=== PATIENT | female | born 1955 | race African-American/Black ===

== ENCOUNTER 2017-01-17 18:51 | Emergency (ER) | payer OTHER ==
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
== END 2017-01-17 21:16 | disposition home or self-care (01) ==
LOC: ERS 18:51
DX: S33.9XXA Sprain of unspecified parts of lumbar spine and pelvis, initial encounter (principal); S13.9XXA Sprain of joints and ligaments of unspecified parts of neck, initial encounter; E11.9 Type 2 diabetes mellitus without complications; M25.511 Pain in right shoulder; F17.210 Nicotine dependence, cigarettes, uncomplicated; I11.0 Hypertensive heart disease with heart failure; I50.9 Heart failure, unspecified; Z86.73 Personal history of transient ischemic attack (TIA), and cerebral infarction without residual deficits; Z79.84 Long term (current) use of oral hypoglycemic drugs; Z79.899 Other long term (current) drug therapy; V43.52XA Car driver injured in collision with other type car in traffic accident, initial encounter
CPT/HCPCS: 72040

== ENCOUNTER 2017-02-14 16:17 | Emergency (ER) | payer OTHER ==
--- NOTE | 2017-02-14 16:48 | RAD ---
CHEST TWO VIEW 02/14/17 HISTORY: Rib pain. COMPARISON: None. FINDINGS: Linear opacity in the right lung base likely atelectasis. No focal air space consolidation, pneumoth orax or effusion. No displaced rib fracture. Mild spondylosis thoracic spine. IMPRESSION: Linear atelectasis right lung base. POS: [facility]
== END 2017-02-14 17:51 | disposition home or self-care (01) ==
LOC: ERS 16:17
DX: J98.11 Atelectasis (principal); M94.0 Chondrocostal junction syndrome [Tietze]; I11.0 Hypertensive heart disease with heart failure; I50.9 Heart failure, unspecified; E11.9 Type 2 diabetes mellitus without complications; F41.9 Anxiety disorder, unspecified; Z79.84 Long term (current) use of oral hypoglycemic drugs; Z79.899 Other long term (current) drug therapy; Z86.73 Personal history of transient ischemic attack (TIA), and cerebral infarction without residual deficits
CPT/HCPCS: 71020

== ENCOUNTER 2017-04-21 20:26 | Emergency (ER) | payer OTHER | END 2017-04-21 22:03 | disposition home or self-care (01) | LOC: ERS 20:26 | DX: S16.1XXA Strain of muscle, fascia and tendon at neck level, initial encounter (principal); I11.0 Hypertensive heart disease with heart failure; I50.9 Heart failure, unspecified; E11.9 Type 2 diabetes mellitus without complications; F17.210 Nicotine dependence, cigarettes, uncomplicated | CPT/HCPCS: 99283 ==

== ENCOUNTER 2017-05-21 09:48 | Emergency (ER) | payer MEDICAID, OTHER ==
--- NOTE | 2017-05-21 12:01 | RAD ---
SINGLE VIEW OF THE CHEST: Comparison: 12-25-15 History: Cough, congestion, body aches and chills for four days. FINDINGS: Single view of the chest shows normal sized cardiomediastinal silhouette with atherosclerotic calcifi cation in the aorta. There is no evidence of consolidation, mass, or pleural effusion. Degenerative c hanges are seen in the spine. IMPRESSION: 1. No evidence of acute cardiopulmonary edema. 2. Atherosclerotic disease. POS: [facility]
== END 2017-05-21 11:46 | disposition home or self-care (01) ==
LOC: ERS 09:48
DX: B34.9 Viral infection, unspecified (principal); I11.0 Hypertensive heart disease with heart failure; I50.9 Heart failure, unspecified; Z86.73 Personal history of transient ischemic attack (TIA), and cerebral infarction without residual deficits; E11.9 Type 2 diabetes mellitus without complications; F17.210 Nicotine dependence, cigarettes, uncomplicated; Z79.899 Other long term (current) drug therapy
CPT/HCPCS: 71045

== ENCOUNTER 2017-08-31 20:31 | Observation (INO) | payer OTHER ==
[~2017-08-31 20:31] MED LIST: ISOVUE-370 76%-LOCM 1 ML ONE
--- NOTE | 2017-08-31 21:29 | CT ---
CT BRAIN: Date: 08/31/17 PROVIDED CLINICAL HISTORY: Left-sided facial droop and headache. FINDINGS: Comparison with 10/24/15. The ventricular system is normal in size and morphology. There is no evidence for intracranial hemorr eleuterio or mass effect. Microvascular ischemic changes are again noted, most conspicuously affecting the left salas radiata. The extracranial soft tissues and osseous structures demonstrate an unremarkabl e CT appearance. IMPRESSION: No evidence for intracranial hemorrhage. Findings communicated to Dr. Flores at 2041 hours on 08/31/17. CODE CR. POS: [facility]
[2017-08-31 21:34] LABS: INR-International Normal Ratio 1.1; PTT 28.3 SEC (22.9-36.1); Prothrombin Time 13.9 SEC (12.0-14.7)
[2017-08-31 21:36] LABS: BHCG - Serum Negative (NEGATIVE); Pregs Control Background? CLEAR/WHITE (CLR/WHITE); Pregs Control Bar Appear? YES (CONTROL BAR)
--- NOTE | 2017-08-31 21:36 | RAD ---
PORTABLE CHEST: Date: 08/31/17 PROVIDED CLINICAL HISTORY: Facial droop, altered mental status. COMPARISON: 05/21/17. FINDINGS: Cardiac and mediastinal silhouette is within normal limits. Lungs appear clear. There is no pleural f luid or pneumothorax apparent. IMPRESSION: No evidence for an acute cardiopulmonary process. POS: [facility]
[2017-08-31 21:39] LABS: ALT (SGPT) 34 U/L (8-55); AST (SGOT) 27 U/L (5-34); Albumin 4.4 g/dL (3.5-5.0); Alkaline Phosphatase 61 U/L (40-150); Anion Gap 15 mmol/L (10-20); BUN (Urea Nitrogen) 20 mg/dL (9.8-20.1); Bilirubin, Total 0.4 mg/dL (0.2-1.2); Calc. Creatinine Clearance 0 mL/min (70-130); Calcium 10.6 mg/dL (7.8-10.44); Carbon Dioxide 20 mmol/L (22-29); Chloride 107 mmol/L (98-107); Estimated GFR-MDRD 51; Globulin 3.2 g/dL (2.4-3.5); Glucose 112 mg/dL (70-105); Potassium 3.7 mmol/L (3.5-5.1); Protein, Total 7.6 g/dL (6.0-8.3); Sodium 138 mmol/L (136-145)
[2017-08-31 21:45] LABS: CKMB 2.2 ng/mL (0-6.6); Troponin I Less than 0.010 ng/mL (< 0.028)
[2017-08-31 21:46] LABS: Acetaminophen Less than 6.0 mcg/mL (10.0-30.0); Alcohol 15 mg/dL (Less than 10); Salicylate Less than 8.0 mg/dL (15.0-30.0)
[2017-08-31 21:52] LABS: Eosinophils 1 % (0-10); Hemoglobin 13.1 g/dL (12.0-16.0); Lymphocytes 31 % (21-51); MDiff Complete? YES; Mean Corpuscular Hemoglobin 30.1 pg (27.0-31.0); Mean Corpuscular Volume 91.3 fl (81.0-99.0); Mean Platelet Volume 8.4 fL (7.4-10.4); Monocytes 10 % (0-10); Neutrophil 58 % (42-75); PLT Morphology Comment Appears Adequate; Platelet Count 248 thou/uL (130-400); RBC Distribution Width 12.2 % (11.5-14.5); Red Blood Cell (RBC) Count 4.34 mill/uL (4.20-5.40); White Blood Cell (WBC) Count 10.6 thou/uL (4.8-10.8)
--- NOTE | 2017-08-31 23:40 | CT ---
CT ANGIOGRAM BRAIN WITH IV CONTRAST AND 3D MIP RECONSTRUCTIONS CT ANGIOGRAM NECK WITH IV CONTRAST AND 3D MIP RECONSTRUCTIONS: Date: 08/31/17 PROVIDED CLINICAL HISTORY: Left-sided facial droop. FINDINGS: There is no evidence for significant focal vessel stenosis, branch occlusion, or aneurysm involving t he intracranial vasculature. There is atherosclerotic plaque noted involving the left vertebral arter y in the region of the foramen magnum. There is an arch origin of the left vertebral artery. The right vertebral artery is dominant. There i s no evidence for significant stenosis involving the great vessels of the neck. Minimal atherosclerot ic vascular calcification involves the right carotid bulb. IMPRESSION: 1. Mild calcified stenosis involving the left vertebral artery at the level of the foramen magnum. 2. No evidence for significant stenosis involving intracranial vasculature, branch occlusion, or ane urysm. 3. No evidence for significant internal carotid artery disease. POS: [facility]
[2017-09-01] MEDS ORDERED: Acetaminophen 325 MG TAB ONE (00:33)
[2017-09-01 01:23] LABS: Lactic Acid 1.9 mmol/L (0.5-2.2)
[2017-09-01] MEDS ORDERED: Enoxaparin Sodium 40 MG/0.4 ML SYRINGE ONE (01:40)
[2017-09-01] MEDS ORDERED: Acetaminophen 325 MG TAB PO PRN (02:21)
[2017-09-01] MEDS ORDERED: Ondansetron ODT 4 MG TAB SL PRN (02:21)
[2017-09-01] MEDS ORDERED: Ondansetron HCl/PF 4 MG/2 ML Vial IVP PRN (02:21)
[2017-09-01 02:35] VITALS: BMI 29.8
[2017-09-01] MEDS ORDERED: Dextrose 5% in Water 1,000 ML IV PRN (06:51)
[2017-09-01] MEDS ORDERED: HumaLOG 300 UNITS/3 ML VIAL SC PRN (06:51)
[2017-09-01] MEDS ORDERED: Dextrose 50% Abboject 50 ML SYRINGE SLOW IVP PRN (06:51)
[2017-09-01] MEDS ORDERED: Allopurinol 100 MG TAB PO SCH (09:00)
[2017-09-01] MEDS ORDERED: Polyethylene Glycol 3350 17 GM Packet PO SCH (09:00)
[2017-09-01] MEDS ORDERED: Carvedilol 6.25 MG TAB PO SCH (09:00)
[2017-09-01] MEDS ORDERED: cloNIDine 0.2mg/24 Hour PATCH TD SCH (09:00)
[2017-09-01] MEDS ORDERED: Losartan 25 MG TAB PO SCH (09:00)
[2017-09-01] MEDS ORDERED: cloNIDine 0.3 MG TAB PO SCH (09:00)
[2017-09-01] MEDS ORDERED: Lisinopril 10 MG TAB PO SCH (09:00)
[2017-09-01] MEDS ORDERED: Aspirin 325 mg Enteric Coated Tablet PO SCH (09:00)
[2017-09-01] MEDS ORDERED: Lorazepam 2 MG/ML VIAL SLOW IVP SCH (11:15)
[2017-09-01 11:46] VITALS: BP 144/81; TEMP 98
--- NOTE | 2017-09-01 13:18 | MRI ---
BRAIN MRI NONCONTRAST: Date: 09/01/17 CLINICAL HISTORY: Left-sided facial droop, headache. Reference made to head CT from previous day. FINDINGS: There is global atrophy, advanced for patient's age. Ventricular system is slightly prominent as a re sult. There is no acute territorial infarction or midline shift. No evidence of intracranial hemorrha gic susceptibility. There is moderate chronic microvascular ischemic disease in the cerebral white ma tter. Multifocal remote lacunar infarctions are present, both supratentorial and infratentorial in lo cation, as well as involving the brainstem. Imaged skull base flow-voids are patent. IMPRESSION: 1. No acute territorial infarction or mass effect. 2. Chronic ischemic disease and superimposed remote lacunar infarctions. POS: [facility]
[2017-09-01] MEDS ORDERED: Mometasone/Formoterol 120 PUFF INHALER INH SCH ×2 (18:30)
[2017-09-01] MEDS ORDERED: Enoxaparin Sodium 40 MG/0.4 ML SYRINGE SC SCH (21:00)
[2017-09-01] MEDS ORDERED: Pravastatin Sodium 40 MG TAB PO SCH (21:00)
--- NOTE | 2017-09-02 02:26 | SS ---
The patient's last name in outpatient record is Leyla. DATE OF ADMISSION: 09/01/2017 DATE OF DISCHARGE: 09/01/2017 The patient's PCP is myself, Dr. Nicola Cruz. CHIEF COMPLAINT: Left-sided facial droop. HISTORY OF PRESENT ILLNESS: The patient reported 200 systolic blood pressure with slurred speech and left-sided facial droop. No chest pain or no shortness of breath, presented to Emergency Department where she was given aspirin and Lovenox following a head CT, which showed no acute intracerebral ble rohith, underwent CTA head and neck with no significant carotid artery stenosis or defects in the circ le of Wolf. Chest x-ray was clear. The patient states that her symptoms resolved pretty quickly a nd then last 1-2 hours when her blood pressure became more controlled. She has no vision changes. T he patient states she did overdose on Nyquil with cough suppressant secondary to continued baseline c ough with her COPD. FORMAL REVIEW OF SYSTEMS: No fevers, no chills, no headache, no vision changes. Positive facial toy op. Positive slurred speech. No shortness of breath. No sputum production. Positive cough, which is her baseline for chronic obstructive pulmonary disease. No chest pain, no heartburn. No abdomen pain, no constipation, no diarrhea. No lower extremity edema. FORMAL REVIEW OF PAST MEDICAL HISTORY: Includes hypertension; congestive heart failure; type 2 diabe veronica; history of CVA; anxiety; insomnia; gout; hepatitis C; CKD stage 2-3, currently 3; COPD on p.r.n. home oxygen; history of tobacco use; urge incontinence; history of illicit drug use including abuse of prescription medications. HOME MEDICATIONS: Include losartan 25 mg, clonidine 0.3 mg b.i.d., solifenacin succinate 5 mg, amlod ipine 10 mg, carvedilol 6.25 mg, allopurinol 10 mg, colchicine 0.6 mg, furosemide 40 mg, quetiapine f umarate 200 mg, glyburide 5 mg, albuterol sulfate 90 mcg 2 puffs p.r.n. q.4 hours for cough and wheez e, gabapentin 300 mg 2 times daily, Dulera 2 puffs 200/5 mcg b.i.d., pravastatin 40 mg, potassium chl oride extended-release 20 mEq, pantoprazole sodium 40 mg. PAST SURGICAL HISTORY: Includes , acid reflux, ablation of gastritis, esophagitis, and chol ecystectomy. SOCIAL HISTORY: The patient continues to have relapses of smoking. PHYSICAL EXAMINATION: VITAL SIGNS: On arrival to floor, temperature 98.4, pulse of 59, blood pressure 174/94, respiratory rate of 20, oxygen saturation 98% on room air. Blood pressure prior to discharge is 144/81. GENERAL: The patient is alert and oriented, no acute distress. HEENT: Head is normocephalic, atraumatic. Extraocular movements are intact. Sclerae are clear. Or al mucosa is moist. NECK: Supple. HEART: Regular rate and rhythm at time of exam. LUNGS: Clear to auscultation bilaterally. No rubs or wheezes. ABDOMEN: Soft, nontender, protuberant, positive bowel sounds throughout. EXTREMITIES: Lower extremities without cyanosis or edema. Moving all extremities equally. Strength 5/5 upper and lower extremities, 2+ reflexes upper and lower extremities equal. NEUROLOGIC: Extraocular movements are intact. Pupillary reflex equal and accommodate bilaterally to light. LABORATORY WORK: Reviewed. White blood count of 10.6, hemoglobin of 13.1, platelet count of 248. I NR of 1.1. Chemistries: Sodium of 138, potassium of 3.7, chloride of 107, CO2 of 20, creatinine of 1.2, estimated GFR of 51. Blood glucose range of 110-281. Lactic acid of 2.2 and 1.9. Calcium of 1 0.6. AST of 27, ALT of 34, alkaline phosphatase of 61. Troponin of less than 0.01. Albumin of 4.4. Serum test is negative. Plasma alcohol level is 15, positive, acetaminophen negative. IMAGING: MRI with old lacunar infarct, some atherosclerotic disease; however, no acute intracranial processes. No acute stroke. ASSESSMENT AND PLAN: Facial droop rule out cerebrovascular accident, hypertensive urgency in combina tion with overdose of [id number] cough syrup and Nyquil, it cause the patient's slurred speech and facial droop. The patient is currently at her baseline for her clinic status. Chronic obstructi ve pulmonary disease, continuing her home medications. I do not feel that her increasing cough witho ut sputum production represent any threat of chronic obstructive pulmonary disease exacerbation. No elevation of white blood cell count. Chest x-ray is completely clear. Transitioning the patient's c lonidine to patch lowering to 0.2 mg. We will follow up with the patient in 1 week with myself, Dr. Nicola Cruz, for blood pressure monitoring. Hypertensive urgency may have also played a part in her symptoms. I do not feel she had a cerebrovascular accident with negative MRI. We will review th e patient's last echocardiogram given a CTA neck will not pursue carotid Dopplers. DISCHARGE CONDITION: Good. The patient ambulated 150 feet with walking program prior to discharge w ithout difficulty. DISCHARGE DIET: Heart healthy and diabetic. DISCHARGE ACTIVITY: As tolerated.
--- NOTE | 2017-09-05 22:15 | EKG ---
Test Reason : Blood Pressure : / mmHG Vent. Rate : 071 BPM Atrial Rate : 071 BPM P-R Int : 164 ms QRS Dur : 082 ms QT Int : 394 ms P-R-T Axes : 036 029 055 degrees QTc Int : 428 ms Normal sinus rhythm Nonspecific T wave abnormality Abnormal ECG Confirmed by MILADYS MORENO D.O. ([id number]), content editor LILI HERNANDEZ ([id number] on 09/05/2017 10:14:26 PM Referred By: Confirmed By:MILADYS MORENO D.O.
== END 2017-09-01 14:17 | disposition home or self-care (01) ==
LOC: ERS 20:31 → 2SW 09-01 00:51
PROVIDERS: ADMIT Family Medicine; ATTEND Family Medicine
DX: T50.991A Poisoning by other drugs, medicaments and biological substances, accidental (unintentional), initial encounter (principal); I16.0 Hypertensive urgency; R29.810 Facial weakness; R47.81 Slurred speech; I13.0 Hypertensive heart and chronic kidney disease with heart failure and stage 1 through stage 4 chronic kidney disease, or unspecified chronic kidney disease; E11.22 Type 2 diabetes mellitus with diabetic chronic kidney disease; N18.3 Chronic kidney disease, stage 3 (moderate); I50.9 Heart failure, unspecified; J44.9 Chronic obstructive pulmonary disease, unspecified; F17.200 Nicotine dependence, unspecified, uncomplicated; B19.20 Unspecified viral hepatitis C without hepatic coma; Z88.5 Allergy status to narcotic agent; Z88.8 Allergy status to other drugs, medicaments and biological substances; Z79.84 Long term (current) use of oral hypoglycemic drugs; Z79.899 Other long term (current) drug therapy; Z98.890 Other specified postprocedural states; Z86.73 Personal history of transient ischemic attack (TIA), and cerebral infarction without residual deficits; Z99.89 Dependence on other enabling machines and devices
CPT/HCPCS: 0042T; 36415; 36416; 70450; 70496; 70498; 70551; 71045; 80053; 80307; 82553; 83605; 84484; 84703; 85025; 85610; 85730; 93005; 96372; 96374; A4216; G0378; J1650; J2060

== ENCOUNTER 2017-11-06 11:35 | Emergency (ER) | payer OTHER ==
[2017-11-06 13:28] LABS: #Basophils 0.1 thou/uL (0.0-0.2); #Eosinphils 0.1 thou/uL (0.0-0.7); #Lymphocytes 2.6 thou/uL (1.20-3.40); #Monocytes 0.5 thou/uL (0.11-0.59); #Neutrophils 5.1 thou/uL (1.40-6.50); %Basophils 0.9 % (0.0-1.0); %Eosinophils 1.3 % (0.0-10.0); %Lymphocytes 30.9 % (21.0-51.0); %Monocytes 5.6 % (0.0-10.0); %Neutrophils 61.3 % (42.0-75.0); Hemoglobin 12.4 g/dL (12.0-16.0); Mean Corpuscular HGB CONC 33.4 g/dL (32.0-36.0); Mean Corpuscular Volume 89.9 fL (78.0-98.0); Mean Platelet Volume 7.7 fL (7.4-10.4); Platelet Count 253 thou/uL (130-400); RBC Distribution Width 11.8 % (11.5-14.5); Red Blood Cell (RBC) Count 4.12 mill/uL (4.20-5.40); White Blood Cell (WBC) Count 8.4 thou/uL (4.8-10.8)
[2017-11-06 13:49] LABS: ALT (SGPT) 23 U/L (8-55); AST (SGOT) 19 U/L (5-34); Albumin 4.2 g/dL (3.4-4.8); Alkaline Phosphatase 68 U/L (40-150); Anion Gap 14 mmol/L (10-20); BUN (Urea Nitrogen) 34 mg/dL (9.8-20.1); Bilirubin, Total 0.6 mg/dL (0.2-1.2); Calc. Creatinine Clearance 0 mL/min (70-130); Calcium 9.5 mg/dL (7.8-10.44); Carbon Dioxide 19 mmol/L (23-31); Chloride 100 mmol/L (98-107); Estimated GFR-MDRD 40; Globulin 3.2 g/dL (2.4-3.5); Glucose 350 mg/dL (80-115); Potassium 4.3 mmol/L (3.5-5.1); Protein, Total 7.4 g/dL (6.0-8.3); Sodium 129 mmol/L (136-145)
[2017-11-06 13:55] LABS: Bilirubin Negative (Negative); Blood, Urine Small (Negative); Clarity CLOUDY (Clear); Glucose, Urine (Dipstick) 100 mg/dL (Negative); Leukocyte Large (Negative); Nitrite Negative (Negative); Protein, Urine (Dipstick) Negative (Neg-Trace); Specific Gravity, Urine 1.011 (1.002-1.036)
[2017-11-06 13:58] LABS: Bacteria/HPF 3+ HPF (None Seen); Hyaline Casts/LPF 0-3 HYALINE CAST LPF (0-3 Hyaline); Pathc Cast-AUWi Flag 0.58 (0-2.49); Squamous Epithelial 21-50 HPF (0-3)
[2017-11-06] MEDS ORDERED: Acetaminophen 500 MG TAB ONE (14:20)
[2017-11-06] MEDS ORDERED: traMADol HCl 50 MG TAB ONE (14:34)
== END 2017-11-06 14:44 | disposition home or self-care (01) ==
LOC: ERS 11:35
DX: N39.0 Urinary tract infection, site not specified (principal); J30.9 Allergic rhinitis, unspecified; I11.0 Hypertensive heart disease with heart failure; I50.9 Heart failure, unspecified; E11.9 Type 2 diabetes mellitus without complications; F17.210 Nicotine dependence, cigarettes, uncomplicated; Z71.6 Tobacco abuse counseling; Z86.73 Personal history of transient ischemic attack (TIA), and cerebral infarction without residual deficits
CPT/HCPCS: 36415; 80053; 81003; 81015; 85025; 87077; 87086; 99406

== ENCOUNTER 2017-11-26 09:49 | Outpatient (CLI) | payer OTHER ==
--- NOTE | 2017-11-26 11:55 | RAD ---
LUMBAR SPINE FOUR VIEWS: History: Low back pain. FINDINGS: There are five lumbar type vertebrae. Pedicles are intact. Mild leftward convex rotatory scoliotic cu rvature. Vertebral body height and AP alignment are maintained without abnormal translational motion upon flexion or extension. Osteophytosis most pronounced at the lower facets. IMPRESSION: Lumbar spondylosis. No acute osseous abnormalities are demonstrated. POS: [facility]
== END 2017-11-26 09:50 | disposition home or self-care (01) ==
LOC: RAD 09:49
PROVIDERS: ATTEND Specialist
DX: M43.17 Spondylolisthesis, lumbosacral region (principal); M47.896 Other spondylosis, lumbar region
CPT/HCPCS: 72120

== ENCOUNTER 2018-08-08 12:54 | Emergency (ER) | payer OTHER ==
[2018-08-08] MEDS ORDERED: ISOVUE-370 76%-LOCM 1 ML ONE (13:17)
[2018-08-08 13:29] LABS: #Basophils 0.1 thou/uL (0.0-0.2); #Eosinphils 0.1 thou/uL (0.0-0.7); #Lymphocytes 2.3 thou/uL (1.20-3.40); #Monocytes 0.5 thou/uL (0.11-0.59); #Neutrophils 4.6 thou/uL (1.40-6.50); %Basophils 1.1 % (0.0-1.0); %Eosinophils 1.7 % (0.0-10.0); %Lymphocytes 30.4 % (21.0-51.0); %Monocytes 6.9 % (0.0-10.0); %Neutrophils 59.9 % (42.0-75.0); Hemoglobin 12.3 g/dL (12.0-16.0); Mean Corpuscular HGB CONC 32.2 g/dL (32.0-36.0); Mean Corpuscular Hemoglobin 29.3 pg (27.0-31.0); Mean Corpuscular Volume 90.9 fL (78.0-98.0); Platelet Count 288 thou/uL (130-400); RBC Distribution Width 13.6 % (11.5-14.5); Red Blood Cell (RBC) Count 4.22 mill/uL (4.20-5.40); White Blood Cell (WBC) Count 7.6 thou/uL (4.8-10.8)
--- NOTE | 2018-08-08 13:30 | RAD ---
Portable chest: HISTORY: Chest pain COMPARISON: 08/31/2017 FINDINGS: Lung mena are clear. Heart and mediastinum appear unremarkable. Vascularity is normal. Visualized osseous structures unremarkable. IMPRESSION: No acute finding
[2018-08-08 13:49] LABS: ALT (SGPT) 17 U/L (8-55); AST (SGOT) 26 U/L (5-34); Albumin 4.1 g/dL (3.4-4.8); Alkaline Phosphatase 69 U/L (40-150); Anion Gap 17 mmol/L (10-20); BUN (Urea Nitrogen) 11 mg/dL (9.8-20.1); Bilirubin, Total 0.5 mg/dL (0.2-1.2); Calc. Creatinine Clearance 0 mL/min (70-130); Calcium 9.9 mg/dL (7.8-10.44); Carbon Dioxide 19 mmol/L (23-31); Chloride 106 mmol/L (98-107); Estimated GFR-MDRD 48; Globulin 3.6 g/dL (2.4-3.5); Glucose 143 mg/dL (80-115); Lipase 11 U/L (8-78); Potassium 4.9 mmol/L (3.5-5.1); Protein, Total 7.7 g/dL (6.0-8.3); Sodium 137 mmol/L (136-145)
[2018-08-08] MEDS ORDERED: hydrALAZINE 20 MG/ML VIAL ONE ×2 (14:02→15:36)
[2018-08-08] MEDS ORDERED: Lorazepam 2 MG/ML VIAL ONE (14:30)
[2018-08-08] MEDS ORDERED: diphenhydrAMINE 50 MG/ML VIAL ONE (14:59)
[2018-08-08] MEDS ORDERED: Acetaminophen 500 MG TAB ONE (14:59)
[2018-08-08] MEDS ORDERED: Fentanyl 100 MCG/2 ML VIAL ONE (15:48)
--- NOTE | 2018-08-08 17:00 | CT ---
CTA AORTOGRAM CHEST AND ABDOMEN: Technique: Multiple axial tomograms were obtained through the chest and abdomen following aortogram p rotocol with multiplanar reconstruction and 3D post processing. Indications: Chest pain. Question aortic dissection. FINDINGS: Thoracic aorta is unremarkable. There is no evidence of dissection or aneurysmal dilatation. Very mil d atherosclerotic change noted. Abdominal aorta shows mild atherosclerotic change. There is mild calcification at the origin of the c eliac artery and superior mesenteric artery. No dissection and no aneurysmal dilatation. Mild atheros clerotic change at the aortic bifurcation, however, the iliac arteries are patent. Stranding with peripheral pleural based nodular opacity in the left lower lung, probably atelectasis, however, follow up is recommended. Liver, spleen pancreas adrenal glands and kidneys unremarkable. Bowel loops unremarkable. IMPRESSION: 1. No evidence of aortic dissection or aneurysmal dilatation. 2. Linear stranding in the left lung base with pleural based nodular opacity, probably atelectasis. F ollow up elective chest CT recommended. Code LN POS: OFF
== END 2018-08-08 16:08 | disposition home or self-care (01) ==
LOC: ERS 12:54
DX: R07.89 Other chest pain (principal); J44.9 Chronic obstructive pulmonary disease, unspecified; Z86.73 Personal history of transient ischemic attack (TIA), and cerebral infarction without residual deficits; I11.0 Hypertensive heart disease with heart failure; I50.9 Heart failure, unspecified; E11.9 Type 2 diabetes mellitus without complications; F17.210 Nicotine dependence, cigarettes, uncomplicated; Z79.899 Other long term (current) drug therapy; Z79.51 Long term (current) use of inhaled steroids
CPT/HCPCS: 36416; 71045; 71275; 80053; 83690; 84484; 85025; 93005; 96374; 96375; 96376; J0360; J1200; J2060; J3010; Q9966

== ENCOUNTER 2020-09-10 09:36 | Emergency (ER) | payer OTHER ==
[2020-09-10] MEDS ORDERED: Fentanyl 100 MCG/2 ML VIAL ONE (10:27)
[2020-09-10 10:53] LABS: #Basophils 0.1 thou/uL (0.0-0.2); #Eosinphils 0.1 thou/uL (0.0-0.7); #Lymphocytes 2.9 thou/uL (1.20-3.40); #Monocytes 0.8 thou/uL (0.11-0.59); #Neutrophils 4.5 thou/uL (1.40-6.50); %Basophils 1.1 % (0.0-1.0); %Eosinophils 0.8 % (0.0-10.0); %Lymphocytes 34.5 % (21.0-51.0); %Monocytes 9.5 % (0.0-10.0); %Neutrophils 54.1 % (42.0-75.0); Hemoglobin 13.1 g/dL (12.0-16.0); Mean Corpuscular HGB CONC 32.9 g/dL (32.0-36.0); Mean Corpuscular Hemoglobin 30.7 pg (27.0-31.0); Mean Corpuscular Volume 93.2 fL (78.0-98.0); Mean Platelet Volume 7.3 fL (7.4-10.4); Platelet Count 303 thou/uL (130-400); Red Blood Cell (RBC) Count 4.27 mill/uL (4.20-5.40); White Blood Cell (WBC) Count 8.3 thou/uL (4.8-10.8)
[2020-09-10 11:19] LABS: Alcohol Less than 10 mg/dL (Less than 10); Salicylate Less than 8.0 mg/dL (15.0-30.0)
[2020-09-10 11:20] LABS: ALT (SGPT) 35 U/L (8-55); AST (SGOT) 30 U/L (5-34); Albumin 4.2 g/dL (3.4-4.8); Alkaline Phosphatase 62 U/L (40-110); Anion Gap 14 mmol/L (10-20); BUN (Urea Nitrogen) 10 mg/dL (9.8-20.1); Bilirubin, Total 0.7 mg/dL (0.2-1.2); CK (CPK) 147 U/L (29-168); Calc. Creatinine Clearance 0 mL/min (70-130); Carbon Dioxide 23 mmol/L (23-31); Chloride 101 mmol/L (98-107); Globulin 3.5 g/dL (2.4-3.5); Glucose 175 mg/dL (80-115); Lipase 22 U/L (8-78); Protein, Total 7.7 g/dL (5.8-8.1); Sodium 134 mmol/L (136-145)
[2020-09-10 12:02] LABS: Bilirubin Negative (Negative); Blood, Urine Negative (Negative); Clarity Clear (Clear); Glucose, Urine (Dipstick) Normal (Negative); Ketone, Urine Negative (Negative); Leukocyte Negative Leu/uL (Negative); Nitrite Negative (Negative); Protein, Urine (Dipstick) 10 mg/dL (Neg-Trace); Specific Gravity, Urine 1.007 (1.002-1.036); Urobilinogen Normal mg/dL (Less than 2); pH, Urine 6.5 (5.0-9.0)
[2020-09-10 12:15] LABS: Amphetamine Not Detected (NotDetected); Barbiturates Screen Not Detected (NotDetected); Benzodiazepine Screen Not Detected (NotDetected); Cocaine Metabolite Screen Not Detected (NotDetected); Medtox Control Line Valid? VALID (VALID); Medtox Reader # READER 4; Methadone Not Detected (NotDetected); Methamphetamine Not Detected (NotDetected); Opiate Screen Not Detected (NotDetected); Oxycodone Screen Not Detected (NotDetected); Phencyclidine (PCP) Not Detected (NotDetected); THC/Cannabinoid Screen Not Detected (NotDetected); Tricyclic Screen Not Detected (NotDetected)
== END 2020-09-10 12:57 | disposition home or self-care (01) ==
LOC: ERS 09:36
DX: G62.9 Polyneuropathy, unspecified (principal); J44.9 Chronic obstructive pulmonary disease, unspecified; I11.0 Hypertensive heart disease with heart failure; I50.9 Heart failure, unspecified; E11.9 Type 2 diabetes mellitus without complications; N19 Unspecified kidney failure; F17.210 Nicotine dependence, cigarettes, uncomplicated; Z86.73 Personal history of transient ischemic attack (TIA), and cerebral infarction without residual deficits; Z79.899 Other long term (current) drug therapy
CPT/HCPCS: 71045; 80053; 80306; 80307; 81003; 82550; 83690; 83880; 84484; 85025; 93005; 96374; J3010